=== PATIENT | female | born 1980 | race African-American/Black ===

== ENCOUNTER 2017-10-18 21:06 | Emergency (ER) | payer MEDICAID ==
[~2017-10-18] VITALS: Ht 175.3 cm; Wt 81.6 kg
[~2017-10-18 21:06] MED LIST: BENAZEPRIL HCL10 MG ORAL; IBUPROFEN600 MG ORAL; KEFLEX500 MG ORAL; RANITIDINE HCL150 MG ORAL; ZOFRAN ODT4 MG ORAL
--- NOTE | 2017-10-18 21:27 | Emergency Room Report ---
History of Present Illness General Chief Complaint: Back Pain-No Injury Source: Patient Present Illness HPI This is a 37-year-old female with history of high blood pressure. She presents with chief complaint of right flank/back pain. Onset today at work. Early this morning she was helping to lift/move a patient. Couple hours later, she was having pain. Worse with movement. No incontinence of bowel or urine. No abdominal pain. No urinary complaint. No hematuria. Pain is 9 out of 10. Allergies: Coded Allergies: No Known Allergies (Unverified , 02/26/16) Patient History Past Medical History: see triage record, old chart reviewed, HTN Past Surgical History: other Pertinent Family History: none Social History: Denies: smoking Last Menstrual Period: 10/14/17 Now: No Immunizations: other Reviewed Nursing Documentation: PMH: Agreed; PSxH: Agreed Nursing Documentation-PMH Past Medical History: No History, Except For Hx Hypertension: Yes Review of Systems Eye: Denies: eye pain, blurred vision ENT: Denies: ear pain, nose congestion, throat swelling Respiratory: Denies: cough, shortness of breath Cardiovascular: Denies: chest pain, palpitations Gastrointestinal: Denies: abdominal pain, diarrhea, nausea, vomiting Musculoskeletal: Reports: back pain; Denies: joint pain Skin: Denies: rash Neurological: Denies: headache, numbness Endocrine: Denies: increased thirst, increased urine Hematologic/Lymphatic: Denies: easy bruising All Other Systems: negative except mentioned in HPI Physical Exam Vital Signs Date Time Temp Pulse Resp B/P (MAP) Pulse Ox O2 Delivery O2 Flow Rate FiO2 10/18/17 21:11 98.3 72 15 148/94 99 Room Air 98.2 vitals with hypertension Sp02 EP Interpretation: reviewed, normal General Appearance: well appearing, no apparent distress, alert Head: normocephalic, atraumatic Eyes: bilateral eye PERRL, bilateral eye EOMI ENT: hearing grossly normal, normal pharynx Neck: full range of motion, supple, no meningismus Respiratory: chest non-tender, lungs clear, normal breath sounds Cardiovascular #1: regular rate, rhythm, no murmur Gastrointestinal: normal bowel sounds, non tender, no mass, no organomegaly, no bruit, non-distended Musculoskeletal: back normal - No midline rness. Tenderness over the right lower thoracic/upper lumbar paraspinous muscle. No rash., gait/station normal, normal range of motion Neurologic: alert, oriented x3 Psychiatric: mood/affect normal Skin: warm/dry Medical Decision Making Diagnostic Impression: Primary Impression: Low back strain Qualified Codes: S39.012A - Strain of muscle, fascia and tendon of lower back , initial encounter Additional Impression: UTI (urinary tract infection) Qualified Codes: N30.00 - Acute cystitis without hematuria ER Course Patient with back pain. No evidence of cauda equina syndrome, spinal epidural abscess or neoplastic process. This is musculoskeletal in nature. Will discharge home. No evidence of pyelonephritis. Last Vital Signs Date Time Temp Pulse Resp B/P (MAP) Pulse Ox O2 Delivery O2 Flow Rate FiO2 10/18/17 21:11 98.3 72 15 148/94 99 Room Air 98.2 Status: improved Disposition: HOME, SELF-CARE Scripts Ibuprofen* (MOTRIN*) 600 Mg Tablet 600 MG ORAL THREE TIMES A DAY, #30 TAB 0 Refills Prov: BARTOLOME TELLO M.D. 10/18/17 Cephalexin* (KEFLEX*) 500 Mg Capsule 500 MG ORAL TID, #21 CAP 0 Refills Prov: BARTOLOME TELLO M.D. 10/18/17 Hydrocodone/Acetaminophen 5-325* (HYDROCODONE/ACETAMINOPHEN 5-325*) 1 Each Tablet 1 TAB ORAL Q6H PRN for For Pain, #15 TAB 0 Refills Prov: BARTOLOME TELLO M.D. 10/18/17 Patient Instructions: Back Pain, Adult Additional Instructions: Follow-up with your doctor in 7 days. Return if worse. BARTOLOME TELLO M.D. Oct 18, 2017 21:27
[2017-10-18] MEDS ORDERED: Ketorolac 60mg Inj IM ONE (21:30)
[2017-10-18 21:47] LABS: APPEARANCE,URINE SLIGHTLY CLOUDY; BILIRUBIN, URINE NEGATIVE (NEGATIVE); COLOR,URINE AMBER; GLUCOSE, URINE (UA) NEGATIVE (NEGATIVE); KETONES,URINE NEGATIVE (NEGATIVE); LEUKOCYTE ESTERASE ,URINE 2+ (NEGATIVE); NITRITE,URINE NEGATIVE (NEGATIVE); PH,URINE 6 (4.5-8.0); PROTEIN,URINE NEGATIVE (NEGATIVE); UROBILINOGEN,URINE NORMAL MG/DL (0.0-1.0)
[2017-10-18] MEDS ORDERED: IBUPROFEN600 MG ORAL (22:23)
[2017-10-18] MEDS ORDERED: KEFLEX500 MG ORAL (22:23)
[2017-10-18] MEDS ORDERED: HYDROCODON-ACE1 EA15 ORAL (22:23)
[2017-10-18 22:30] VITALS: BP 135/88
== END 2017-10-18 22:30 | disposition home or self-care (01) ==
LOC: EMR 21:28
DX: S39.012A Strain of muscle, fascia and tendon of lower back, initial encounter (principal); N30.00 Acute cystitis without hematuria; I10 Essential (primary) hypertension; X50.0XXA Overexertion from strenuous movement or load, initial encounter; Y99.0 Civilian activity done for income or pay
CPT/HCPCS: 81003; 81025; 87086; 96372; 99284

== ENCOUNTER 2018-06-22 18:29 | Emergency (ER) | payer MEDICAID ==
[~2018-06-22] VITALS: Ht 175.3 cm; Wt 85.3 kg
[~2018-06-22 18:29] MED LIST changes: +HYDROCODON-ACE1 EA15 ORAL
[2018-06-22 18:38] VITALS: BP 128/79
--- NOTE | 2018-06-22 19:00 | Emergency Room Report ---
History of Present Illness General Chief Complaint: Dizziness Source: Patient Present Illness HPI Is a 38-year-old female with history of high blood pressure. She presents with chief complaint of dizziness and headache. His been ongoing for last 3 days. Usually when she wakes up. [place] lightheaded. No nausea no vomiting. Room is not spinning. No focal deficit. Better with Tylenol. Does have a congestion. Denies any other complaint. No pain or dizziness now after taking Tylenol. Allergies: Coded Allergies: No Known Allergies (Unverified , 02/26/16) Patient History Past Medical History: see triage record, old chart reviewed, HTN Past Surgical History: none Pertinent Family History: none Social History: Denies: smoking Now: No Immunizations: other Reviewed Nursing Documentation: PMH: Agreed; PSxH: Agreed Nursing Documentation-PMH Past Medical History: No History, Except For Hx Hypertension: Yes Review of Systems Eye: Denies: eye pain, blurred vision ENT: Denies: ear pain, nose congestion, throat swelling Respiratory: Denies: cough, shortness of breath Cardiovascular: Denies: chest pain, palpitations Gastrointestinal: Denies: abdominal pain, diarrhea, nausea, vomiting Musculoskeletal: Denies: back pain, joint pain Skin: Denies: rash Neurological: Reports: headache, dizziness; Denies: numbness Endocrine: Denies: increased thirst, increased urine Hematologic/Lymphatic: Denies: easy bruising All Other Systems: negative except mentioned in HPI Physical Exam Vital Signs Date Time Temp Pulse Resp B/P (MAP) Pulse Ox O2 Delivery O2 Flow Rate FiO2 06/22/18 18:32 97.9 95 17 132/87 98 Room Air Sp02 EP Interpretation: reviewed, normal General Appearance: well appearing, no apparent distress, alert Head: normocephalic, atraumatic Eyes: bilateral eye PERRL, bilateral eye EOMI ENT: hearing grossly normal, normal pharynx Neck: full range of motion, supple, no meningismus Respiratory: chest non-tender, lungs clear, normal breath sounds Cardiovascular #1: regular rate, rhythm, no murmur Gastrointestinal: normal bowel sounds, non tender, no mass, no organomegaly, no bruit, non-distended Musculoskeletal: back normal, gait/station normal, normal range of motion Psychiatric: mood/affect normal Skin: warm/dry Medical Decision Making Diagnostic Impression: Primary Impression: Dizziness of unknown cause ER Course Patient with complaint of dizziness. CT scan negative. No evidence of TIA/CVA , bleed or neoplastic process. No evidence of any meningitis. We'll discharge home. Last Vital Signs Date Time Temp Pulse Resp B/P (MAP) Pulse Ox O2 Delivery O2 Flow Rate FiO2 06/22/18 18:38 81 18 Room Air 06/22/18 18:38 97.9 128/79 100 Status: improved Disposition: HOME, SELF-CARE Condition: Stable Referrals: NON PHYSICIAN (PCP) Patient Instructions: Dizziness Additional Instructions: Follow-up your doctor in 7 days. Return if symptom worsen. Continue with Tylenol or Motrin. Bharat Loyola MD Jun 22, 2018 19:00
--- NOTE | 2018-06-22 19:39 | Diagnostic Imaging Report ---
EXAM: CT Head Without Intravenous Contrast CLINICAL HISTORY: DIZZY TECHNIQUE: Axial computed tomography images of the head/brain without intravenous contrast. CTDI is 0.15, 70.38 mGy and DLP is 1277 mGy-cm. One or more of the following dose reduction techniques were used: automated exposure control, adjustment of the mA and/or kV according to patient size, use of iterative reconstruction technique. COMPARISON: No relevant prior studies available. FINDINGS: Brain: No acute infarct, hemorrhage, mass or edema. No significant white matter disease. Ventricles: Unremarkable. No ventriculomegaly. Bones/joints: Unremarkable. No acute fracture. Soft tissues: Unremarkable. Sinuses: Sinuses are patent. Mastoid air cells: Unremarkable as visualized. No mastoid effusion. IMPRESSION: No acute findings.
[2018-06-22 19:44] LABS: HEMATOCRIT 38.7 % (37.0-47.0); MEAN CORPUSCULAR VOLUME 97 FL (80-99); PLATELET COUNT 283 K/UL (150-450); RED CELL DISTRIBUTION WIDTH 11.7 % (11.6-14.8); WHITE BLOOD COUNT 8.3 K/UL (4.8-10.8)
[2018-06-22 19:45] VITALS: BP 128/81
[2018-06-22 19:49] LABS: ANION GAP 9 mmol/L (5-15); BLOOD UREA NITROGEN 17 mg/dL (7-18); CALCIUM 8.9 MG/DL (8.5-10.1); CARBON DIOXIDE 27 MMOL/L (21-32); CHLORIDE 106 MMOL/L (98-107); CREATININE 1.3 MG/DL (0.55-1.30); POTASSIUM 3.8 MMOL/L (3.5-5.1); SODIUM 142 MMOL/L (136-145)
[2018-06-22 20:16] VITALS: BP 128/81
== END 2018-06-22 20:17 | disposition home or self-care (01) ==
LOC: EMR 18:53
DX: R42 Dizziness and giddiness (principal); I10 Essential (primary) hypertension; R51 Headache
CPT/HCPCS: 36415; 70450; 80048; 85007; 85025; 99284